=== PATIENT | female | born 1995 | race Caucasian/White ===

== ENCOUNTER 2018-12-23 13:38 | Inpatient (IN) | payer OTHER ==
[~2018-12-23] VITALS: Ht 157.5 cm; Wt 81.6 kg
[2018-12-26] MEDS ORDERED: PROVIDA OB CAP1 EACH PO (09:25)
== END 2018-12-27 12:09 | disposition home or self-care (01) | DRG 833 ==
LOC: SEC-K 13:38 → OB/GYN 13:38
PROVIDERS: ADMIT Obstetrics & Gynecology
DX: O21.0 Mild hyperemesis gravidarum (principal); E86.0 Dehydration; Z34.01 Encounter for supervision of normal first pregnancy, first trimester; E87.8 Other disorders of electrolyte and fluid balance, not elsewhere classified
CPT/HCPCS: 240

== ENCOUNTER 2018-12-31 22:32 | Emergency (ER) | payer OTHER ==
[~2018-12-31] VITALS: Ht 157.5 cm; Wt 81.6 kg
[~2018-12-31 22:32] MED LIST: PROVIDA OB CAP1 EACH PO
[2019-01-01] MEDS ORDERED: MIRALAX17 GM PO (03:18)
== END 2019-01-01 04:30 | disposition home or self-care (01) ==
LOC: ER 22:32
DX: O26.892 Other specified pregnancy related conditions, second trimester (principal); K59.09 Other constipation; M54.5 Low back pain; Z34.02 Encounter for supervision of normal first pregnancy, second trimester

== ENCOUNTER → 2019-09-20 | Outpatient (CLI) | payer OTHER ==
[~2019-09-20] MED LIST changes: +MIRALAX17 GM PO
== END | disposition home or self-care (01) ==
LOC: PRENATAL 15:00
DX: O30.041 Twin pregnancy, dichorionic/diamniotic, first trimester (principal); O99.211 Obesity complicating pregnancy, first trimester; O09.211 Supervision of pregnancy with history of pre-term labor, first trimester; O35.8XX2 Maternal care for other (suspected) fetal abnormality and damage, fetus 2

== ENCOUNTER 2019-10-26 17:02 | Emergency (ER) | payer OTHER ==
[~2019-10-26] VITALS: Ht 160 cm; Wt 90.7 kg
== END 2019-10-26 20:59 | disposition home or self-care (01) ==
LOC: ER 17:02
DX: O21.0 Mild hyperemesis gravidarum (principal); Z34.01 Encounter for supervision of normal first pregnancy, first trimester

== ENCOUNTER → 2019-11-06 | Outpatient (CLI) | payer OTHER | END | disposition home or self-care (01) | LOC: PRENATAL 15:19 | DX: O26.841 Uterine size-date discrepancy, first trimester (principal); O09.211 Supervision of pregnancy with history of pre-term labor, first trimester; O30.011 Twin pregnancy, monochorionic/monoamniotic, first trimester ==

== ENCOUNTER → 2019-12-05 | Outpatient (CLI) | payer OTHER ==
[~2019-12-05] MED LIST changes: +PROGESTERONE200 MG VAG
== END | disposition home or self-care (01) ==
LOC: PRENATAL 15:30
DX: O30.92 Multiple gestation, unspecified, second trimester (principal); O09.212 Supervision of pregnancy with history of pre-term labor, second trimester; O35.3XX0 Maternal care for (suspected) damage to fetus from viral disease in mother, not applicable or unspecified; O99.212 Obesity complicating pregnancy, second trimester

== ENCOUNTER → 2020-01-02 | Outpatient (CLI) | payer OTHER | END | disposition home or self-care (01) | LOC: PRENATAL 13:00 | DX: O26.842 Uterine size-date discrepancy, second trimester (principal); O36.5921 Maternal care for other known or suspected poor fetal growth, second trimester, fetus 1; O09.212 Supervision of pregnancy with history of pre-term labor, second trimester; O60.02 Preterm labor without delivery, second trimester; O30.042 Twin pregnancy, dichorionic/diamniotic, second trimester ==

== ENCOUNTER 2020-01-17 22:41 | Inpatient (IN) | payer OTHER ==
[~2020-01-17] VITALS: Ht 157.5 cm; Wt 90.7 kg
== END 2020-01-19 11:03 | disposition designated cancer center or children's hospital (05) | DRG 831 ==
LOC: LDR 22:41
PROVIDERS: ADMIT Obstetrics & Gynecology
PROC: BY4DZZZ Ultrasonography of Second Trimester, Multiple Gestation (ICD-10-PCS; principal; 2020-01-18)
PROC: 4A1HXCZ Monitoring of Products of Conception, Cardiac Rate, External Approach (ICD-10-PCS; 2020-01-18)
DX: O46.8X2 Other antepartum hemorrhage, second trimester (principal); O34.32 Maternal care for cervical incompetence, second trimester; O60.02 Preterm labor without delivery, second trimester; Z3A.25 25 weeks gestation of pregnancy; O65.5 Obstructed labor due to abnormality of maternal pelvic organs